=== PATIENT | male | born 1985 | race Caucasian/White ===

== ENCOUNTER → 2016-05-31 | Outpatient (CLI) | payer OTHER ==
--- NOTE | 2016-06-05 06:06 | SLEEPCENT ---
DATE OF PROCEDURE: 05/31/2016 ORDERED BY: NYA Quiroz Nocturnal polysomnography was performed for evaluation of sleep apnea syndrome symptoms in this patient with a history excessive somnolence and nonrestorative sleep. 6 hours and 14 minutes of data were reviewed. There were only 159 minutes of sleep identified. Sleep latency was prolonged at 67 minutes. Rapid eye movement (REM) was normal at 53 minutes. Sleep architecture showed fairly good progression. There were 2 REM periods. The patient awoke shortly after 2:30 and remained awake for the remaining portion of the study. Overall sleep efficiency was therefore reduced at 43%. The patient's electrocardiogram (EKG) showed a sinus rhythm with an average heart rate of 60 beats per minute. Electroencephalogram (EEG) showed normal waveforms for awake and sleep. There were only 4 respiratory events identified of 10 seconds in duration or greater for an apnea hypopnea index of 1.5. The events seen were seen in the supine posture. Snoring was noted and snore related arousals did occur. The respiratory arousal index was 3.8. Some limb activity was noted, but there were no significant trains of events. Limb movement arousal occurred only 3 times per hour. The remaining of measures of sleep physiology were normal. IMPRESSION: Normal nocturnal polysomnography with snoring. RECOMMENDATION: Sleep position retraining for avoidance of the supine posture may be sufficient to address the patient's snoring problem and improve quality of sleep. If sleep symptoms persist, re-testing may be helpful to allow for more testing time as the patient awoke quite early during this test.
== END | disposition home or self-care (01) ==
LOC: M SLEEP 19:25
PROVIDERS: ATTEND Nurse Practitioner Adult Health
DX: R06.83 Snoring (principal)

== ENCOUNTER → 2020-07-02 | Outpatient (CLI) | payer OTHER ==
--- NOTE | 2020-07-02 16:25 | REP ---
INDICATION: LEFT UPPER BACK LIPOMA. COMPARISON: None. TECHNIQUE: Real-time sonographic evaluation of left posterior chest wall performed at the site of a palpable lump. FINDINGS: There is an elongated masslike structure which is mixed echogenicity but slightly hyperechoic. It measures 6.2 x 1.1 x 6.2 cm. This may represent a lipoma. IMPRESSION: Possible lipoma at the site of the palpable lump in the left posterior chest wall. This could be confirmed with MRI. <Electronically signed by Bijan Samson > 07/02/20 [id number]
== END ==
LOC: M RAD 11:50
PROVIDERS: ATTEND Nurse Practitioner
DX: D48.7 Neoplasm of uncertain behavior of other specified sites (principal)

== ENCOUNTER → 2020-07-21 | Outpatient (CLI) | payer OTHER ==
[~2020-07-21] MED LIST: PRIS50TA PO
== END ==
LOC: M LABSMTC 11:34
PROVIDERS: ATTEND Anesthesiology
DX: Z01.818 Encounter for other preprocedural examination (principal); Z11.52 Encounter for screening for COVID-19

== ENCOUNTER 2020-07-26 09:26 | Day surgery (SDC) | payer OTHER ==
[~2020-07-26] VITALS: Ht 172.7 cm; Wt 83.9 kg
[~2020-07-26 09:26] MED LIST changes: +CelecoXIB (CeleBREX) 100 MG CAP PO ONE; +LR 1,000 ML IV ONE
[2020-07-26] MEDS ORDERED: LIDOCAINE 2% 100MG/5ML SDV (FOR ANES.) As Ordered ONE (10:22)
[2020-07-26] MEDS ORDERED: ACETAMINOPHEN 1000MG 100ML IV BTL (OFIRMEV) (J0131 PER 10MG) As Ordered ONE (10:22)
[2020-07-26] MEDS ORDERED: propofoL 200 MG/20 ML VIAL As Ordered ONE ×2 (10:22→11:49)
[2020-07-26] MEDS ORDERED: BUPIVACAINE HCL 0.25% 30ML VIAL As Ordered ONE (10:45)
[2020-07-26] MEDS ORDERED: LIDOCAINE 1% SDV 30ML VIAL As Ordered ONE (10:45)
[2020-07-26] MEDS ORDERED: MIDAZOLAM INJ 2MG/2ML VIAL (J2250 PER 1MG) As Ordered ONE (10:56)
[2020-07-26] MEDS ORDERED: PHENYLephrine 500MCG 5ML (100MCG/ML) SYRINGE As Ordered ONE (11:55)
[2020-07-26] MEDS ORDERED: OXYC1TAB23 PO (12:25)
[2020-07-26 13:35] VITALS: BP 132/79
--- NOTE | 2020-07-27 21:05 | ECGEPIP ---
[facility] Test Date: 2020-07-26 Pat Name: MARIANGEL RUDD Department: Room: - Gender: Male [employer] Machine Operator: KENNEY : 1985 Requested By: Robbi Pena Order Number: [id number] Reading MD: Hunter Anglin Measurements Intervals [place] Rate: 66 P: 37 [place]: 188 QRS: 44 QRSD: 74 T: 12 QT: 370 QTc: 387 Interpretive Statements Normal sinus rhythm No prior tracing in the system Electronically Signed on 07-27-2020 21:04:44 EDT by Hunter Anglin
--- NOTE | 2020-08-05 13:26 | ROOPDOC ---
[facility] Report Of Operation Report of Operation DATE OF PROCEDURE: 07/26/20 PREPROCEDURE DIAGNOSES: lipoma, left back. POSTPROCEDURE DIAGNOSES: intramuscular lipoma, left scapula. PROCEDURE: Excision of lipoma, left scapula. SURGEON: Natanael Turk MD UX ARCHITECT: ANESTHESIA: Monitored Anesthesia Care. ESTIMATED BLOOD LOSS: Approximately 20 mL. SPECIMEN: lipoma (5x4 cms) REMARKS: 35 M complaining of slowly enlarging soft tissue lump on his left back area. PROCEDURE NOTE: Patient was brought to the operating room, placed on the right lateral decubitus position with his pressure points padded on a beanbag. Monitoring leads as well as oxygen provided throughout the case. Bilateral sequential compression devices placed on both lower extremities were DVT prophylaxis. IV sedation was started. His back area up to the shoulder into the lower back and to the arms were prepped and draped in the usual sterile fashion.We paused for a surgical timeout using both pre-incision safety checklist to verify correct patient, procedure site and additional clinical information prior to beginning the procedure There is a prominent bulging right on the midportion of the left scapula roughly about 4 x 4 centimeters in size more prominent when he is sitting up than on this position. Previously marked the area. The skin and soft tissue was liberally infiltrated with a mixture of 1% lidocaine and 1/4% Marcaine. A transverse incision was then created and compressing the width of the lump and slowly deepened through to the superficial subcutaneous tissue. Initially I thought this was just subcutaneous but the mass would not define itself though after I got down deeper. I opened up the overlying muscle fascia and encountered the soft tissue lump. I then circumferentially was able to dissect the lump of the underlying or surrounding muscle. This was inspected for adequate hemostasis. I left Ajith within the belly of the muscle. The overlying fascia was closed with 2-0 Vicryl. The subcutaneous tissue was closed with interrupted sutures of 3-0 Vicryl. The skin was closed with 4-0 Monocryl in subcutaneous fashion. Steri-Strips, gauze dressing and Tegaderm was then used for dressing.. DESCRIPTION OF PROCEDURE: . NATANAEL TURK MD Aug 05, 2020 13:26
== END 2020-07-26 13:35 | disposition home or self-care (01) ==
LOC: M SDC 09:26
PROVIDERS: ATTEND Surgery
DX: D17.1 Benign lipomatous neoplasm of skin and subcutaneous tissue of trunk (principal); E03.9 Hypothyroidism, unspecified; F32.9 Major depressive disorder, single episode, unspecified; F41.9 Anxiety disorder, unspecified; R06.83 Snoring; Z79.899 Other long term (current) drug therapy; Z91.030 Bee allergy status
CPT/HCPCS: 21933; 88304; 93005; J0131; J2250; J2370

== ENCOUNTER → 2020-08-23 | Outpatient (REF) | payer OTHER ==
[~2020-08-23] MED LIST changes: -CelecoXIB (CeleBREX) 100 MG CAP PO ONE; -LR 1,000 ML IV ONE; +OXYC1TAB23 PO
== END ==
LOC: M LAB REF 17:28
PROVIDERS: ATTEND Plastic Surgery Surgery of the Hand
DX: Q82.5 Congenital non-neoplastic nevus (principal); D17.1 Benign lipomatous neoplasm of skin and subcutaneous tissue of trunk; L72.12 Trichodermal cyst